=== PATIENT | male | born 1950 | race Caucasian/White ===

== ENCOUNTER 2024-10-22 09:30 | Day surgery (SDC) | payer MEDICARE, SELFPAY ==
[2024-10-22] VITALS (9 sets, daily range): BP systolic 105–165; BP diastolic 75–91; PULSE 99–110; RESP 14–18; TEMP 36.1–36.6; O2SAT 91–96; BMI 30.5
[2024-10-22] MEDS: SODIUM CHLORIDE 0.9% 500 ML 500 ML 20 ML IV (11:10)
[2024-10-22] MEDS: fentaNYL CIT INJ 50 mCg/ML AMP 2ML (ASD USE ONLY) IVP (11:13)
[2024-10-22] MEDS: MIDAZOLAM INJ 1 MG/ML VIAL 2 ML (ASD USE ONLY) 2 MG IVP (11:13)
[2024-10-22] MEDS: DiphenhydrAMINE INJ 50 MG/ML VIAL 25 MG IVP (11:22)
== END 2024-10-22 12:10 | disposition home or self-care (01) ==
PROVIDERS: PCP Internal Medicine; Referring Provider Specialist; Visit Provider Specialist
PROC: 0DBE8ZX Excision of Large Intestine, Via Natural or Artificial Opening Endoscopic, Diagnostic (ICD-10-PCS; CPT 45380; principal; 2024-10-22 10:30)
DX: Z12.11 Encounter for screening for malignant neoplasm of colon (principal); D12.0 Benign neoplasm of cecum; K64.9 Unspecified hemorrhoids; K57.30 Diverticulosis of large intestine without perforation or abscess without bleeding
CPT/HCPCS: 45380; J1200; J2250; J3010; J7040